=== PATIENT | male | born 1960 | race Caucasian/White ===

== ENCOUNTER 2018-01-29 17:34 | Emergency (ER) | payer OTHER ==
[~2018-01-29] VITALS: Ht 172.7 cm; Wt 75.8 kg
[~2018-01-29 17:34] MED LIST: ALBUTEROL2.5 MG/3 M IH; PREDNISONE 10 M10 MG PO; PREDNISONE 20 M20 M1 PO; VENTOLIN HFA 1818 GM INH; ZPAK PO
[2018-01-29] MEDS ORDERED: NABUMETONE 750750 M1 PO (18:52)
[2018-01-29] MEDS ORDERED: NORCO 5-325 TA1 EACH PO (18:52)
[2018-01-29 19:13] VITALS: BP 129/78
== END 2018-01-29 19:16 | disposition home or self-care (01) ==
LOC: M.ERS 17:34
DX: M24.012 Loose body in left shoulder (principal); F17.210 Nicotine dependence, cigarettes, uncomplicated; Z88.8 Allergy status to other drugs, medicaments and biological substances